=== PATIENT | male | born 1990 | race Two or more races ===

== ENCOUNTER → 2020-01-11 | Outpatient (CLI) | payer MEDICAID | END | disposition home or self-care (01) | LOC: STAR 12:01 | PROVIDERS: ATTEND Anesthesiology | DX: Z01.812 Encounter for preprocedural laboratory examination (principal); Z20.828 Contact with and (suspected) exposure to other viral communicable diseases | CPT/HCPCS: 36415; 87635 ==

== ENCOUNTER 2020-04-19 12:17 | Emergency (ER) | payer MEDICAID ==
[~2020-04-19] VITALS: Ht 188 cm; Wt 76.6 kg
[~2020-04-19 12:17] MED LIST: ALBUTEROL INH INH
[2020-04-19] MEDS ORDERED: DEXAMETHASONE 4 MG TABLET ONE (12:46)
[2020-04-19] MEDS ORDERED: FAMOTIDINE 20 MG TABLET ONE (12:47)
[2020-04-19] MEDS ORDERED: DIPHENHYDRAMINE 25 MG CAPSULE ONE (12:47)
[2020-04-19] MEDS ORDERED: EPINEPHRINE 1 MG/ML, 1ML ONE (12:47)
--- NOTE | 2020-04-19 12:57 | NUR ---
PT C/O SOB AND RASH THAT STARTED 45MIN-1HR AFTER INGESTING [employer]IMBERLEE, HERBAL SUPPLEMENT. PT HAS HAD ALLERGIC REACTIONS BEFORE TO PEANUTS. PT'S BREATHING HAS IMPROVED, HOWEVER RASH IS STILL PRESENT.
[2020-04-19] MEDS ORDERED: DIPHENHYDRAMINE 25 MG CAPSULE PO ONE (13:00)
[2020-04-19] MEDS ORDERED: FAMOTIDINE 20 MG TABLET PO ONE (13:00)
[2020-04-19] MEDS ORDERED: EPINEPHRINE 1 MG/ML, 1ML SQ ONE (13:00)
[2020-04-19] MEDS ORDERED: DEXAMETHASONE 4 MG TABLET PO ONE (13:00)
[2020-04-19 13:51] VITALS: BP 112/65
== END 2020-04-19 13:53 | disposition home or self-care (01) ==
LOC: ED 12:39
DX: L50.0 Allergic urticaria (principal); T50.905A Adverse effect of unspecified drugs, medicaments and biological substances, initial encounter; R21 Rash and other nonspecific skin eruption; J45.909 Unspecified asthma, uncomplicated; F17.200 Nicotine dependence, unspecified, uncomplicated; Y92.89 Other specified places as the place of occurrence of the external cause
CPT/HCPCS: 96372; 99284; J0171; Q0163

== ENCOUNTER 2020-08-08 17:51 | Emergency (ER) | payer MEDICAID ==
[~2020-08-08] VITALS: Ht 188 cm; Wt 76.7 kg
--- NOTE | 2020-08-08 18:19 | NUR ---
manager mining: pt from lobby to room [id number]
--- NOTE | 2020-08-08 18:23 | NUR ---
PATIENT WALKED BACK FROM TRIAGE WITH CHIEF C/O LEFT KNEE INJURY. PATIENT REPORTS HE INJURED HIS LEFT KNEE IN MARCH, AND TODAY WHILE CLIMBING LIFTED HIS KNEE AND FELT A "POP" FOLLOWED BY "EXCRUCIATING PAIN." [facility] AND REFERRED TO ED FOR MRI. PATIENT AMBULATORY WITH USE OF CRUTCHES.
--- NOTE | 2020-08-08 18:47 | NUR ---
REPORT FROM JOAO JIMÉNEZ. PT RESTING WITH NO NEEDS AT THIS TIME.
--- NOTE | 2020-08-08 19:12 | NUR ---
PT TO MRI
[2020-08-08] MEDS ORDERED: KETOROLAC 30 MG/1 ML IM ONE (19:30)
[2020-08-08] MEDS ORDERED: KETOROLAC 60 MG/2 ML ONE (20:06)
--- NOTE | 2020-08-08 20:11 | NUR ---
PT BACK FROM MRI AND MEDICATED FOR PAIN. WAITING FOR MRI READ. FRIEND AT BEDSIDE
--- NOTE | 2020-08-08 20:52 | NUR ---
Patient given discharge instructions and they have confirmed that they understand the instructions. Patient ambulatory with steady gait.
[2020-08-08 20:53] VITALS: BP 134/72
== END 2020-08-08 20:55 | disposition home or self-care (01) ==
LOC: ED 20:49
DX: S83.212A Bucket-handle tear of medial meniscus, current injury, left knee, initial encounter (principal); X58.XXXA Exposure to other specified factors, initial encounter; Y93.89 Activity, other specified; Y92.39 Other specified sports and athletic area as the place of occurrence of the external cause; Y99.8 Other external cause status
CPT/HCPCS: 73721; 96372; 99284; J1885